=== PATIENT | female | born 1955 | race Caucasian/White ===

== ENCOUNTER → 2016-10-05 | Outpatient (CLI) | payer BC ==
--- NOTE | ~2016-10-05 | ECHO ---
Transthoracic Echocardiography Report (TTE) Demographics Patient Name BUZZ GREGG Date of Study 10/05/2016 Patient Number [id number] Visit Number [id number] Date of 1955 Room Number Accession Number [id number] Gender Female Age 60 year(s) Referring Alexa Shoemaker MD It Technical Support Specialist Luis Miguel George RVT Physician Physician Interpreting Dudley Andrew Ripshear Operator Physician Supervising Ordering Physician Alexa Guerra MD/P Nurse Stress Aircraft Instrument Tester Conclusions Contractility Score Summary Normal Left Ventricular contractility was noted. Summary The estimated left ventricular ejection fraction is 55-60% with normal WM,wall thickness and internal dimension. Trivial mitral regurgitation by color Doppler. Trivial tricuspid regurgitation by color Doppler. Trivial pulmonic valve regurgitation by color Doppler. Procedure Type of Study TTE procedure:2D Echocardiogram, Echo with Contrast. Procedure Date Date: 10/05/2016 Start: 01:25 PM Study Location: Echo Lab Technical Quality: Adequate visualization Indications:Pulmonary hypertension. Appropriate Use Criteria: 9 Patient Status: Routine HR: 67 bpm BP: 129/69 mmHg M-Mode/2D Measurements LV Diastolic Dimension: 4.13 cm LV Systolic Dimension: 2.94 cm LV Septum Diastolic: 1.07 cm LV PW Diastolic: 1.06 cm AO Root Dimension: 2.4 cm Cardiac Output: 4.08 l/min AV Cusp Separation: 1.6 cm RV Diastolic Dimension: 2.92 cm LVOT: 2 cm LVOT VTI: 19.4 cm RV Base: 3.18 cm LV Stroke volume: 60.92 ml RV Length: 5.67 cm TAPSE: 2.43 cm TDI-S': 14.3 cm/s Doppler Measurements AV Peak Velocity: 1.43 m/s MV Peak E-Wave: 1.09 m/s AV Peak Gradient: 8.18 mmHg MV Peak A-Wave: 0.59 m/s AV Mean Gradient: 4 mmHg MV E/A Ratio: 1.86 LVOT Peak Velocity: 1 m/s MV P1/2t: 63 msec TR Gradient:22.09 mmHg PV Peak Velocity: 1.05 m/s Estimated RAP:10 mmHg PV Peak Gradient: 4.41 mmHg Estimated RVSP: 32 mmHg Estimated PASP: 32.09 mmHg E' Septal Velocity: 0.07 m/s A' Septal Velocity: 0.12 m/s E' Lateral Velocity: 0.1 m/s A' Lateral Velocity: 0.12 m/s Findings Left Ventricle Normal left ventricle size and function. Right Ventricle Normal right ventricle structure and function. Left Atrium Normal left atrial size. Right Atrium IVC measures 1.57 cm with inspiratory collapse. Mitral Valve Trivial mitral regurgitation by color Doppler. Aortic Valve Normal aortic valve structure and function. Tricuspid Valve Trivial tricuspid regurgitation by color Doppler. Pulmonic Valve Trivial pulmonic valve regurgitation by color Doppler. Pericardial Effusion No evidence of pericardial effusion. Miscellaneous Visualized portions of the aortic root and ascending aorta appear normal in size. Pleural Effusion No evidence of pleural effusion. Contractility Score LV regional wall motion:(0-Non visualized 1-Normal 2-Hypokinesis 3-Akinesis 4-Dyskinesis 5-Aneurysm) Signature dtt: Lorrie Buckner dtd: 10/05/16 1325 Physician Self Edit
== END | disposition disaster alternative care site (69) ==
LOC: GCAR 09-19 13:00
DX: I27.2 Other secondary pulmonary hypertension (principal)
CPT/HCPCS: C8929; Q9957